=== PATIENT | male | born 1945 | race Caucasian/White ===

== ENCOUNTER 2021-02-03 17:13 | Emergency (ER) | payer OTHER ==
[~2021-02-03] VITALS: Ht 170.1 cm; Wt 77.1 kg
[2021-02-03] MEDS ORDERED: NAPROXEN250 MG PO (20:57)
== END 2021-02-03 21:15 | disposition home or self-care (01) ==
LOC: ED 17:13
DX: M17.12 Unilateral primary osteoarthritis, left knee (principal)